=== PATIENT | male | born 2000 | race Two or more races ===

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

== ENCOUNTER 2021-02-20 01:59 | Emergency (ER) | payer SELFPAY ==
[~2021-02-20] VITALS: Ht 170.2 cm; Wt 84.1 kg
--- NOTE | 2021-02-20 05:30 | ED.ADGEN ---
Past Medical History Past Medical History: No Pertinent History Past Surgical History: No Surgical History Smoking Status: Never Smoker Alcohol Use: None Drug Use: None General Adult EDM: Chief Complaint: HEMATEMESIS/VOMITING BLOOD HPI: HPI: Patient is a 20 year old male presenting with a few episodes of hematemesis starting 3 days ago. Patient states initially he had clear emesis that was fol lowed by coffee-ground and then some reddish streaked emesis. Patient states he spicy food but denies any heavy alcohol use. Says he has had intermittent burning epigastric pain. Patient took a laxative 2 days ago for constipation that had lasted 10 days. Patient states he since had a bowel movement. Review of Systems: Review of Systems: All other systems within normal limits except for as noted in the HPI Allergies: Allergies: Allergies Coded Allergies Type Severity Reaction Last Updated Verified No Known Drug Allergies 09/10/16 No Physical Exam: PE: Constitutional: Well developed, well nourished, no acute distress, non-toxic appearance. [] HENT: Normocephalic, atraumatic, bilateral external ears normal, nose normal. [] Eyes: PERRLA, conjunctiva normal, no discharge. [] Neck: No rigidity, supple, no stridor. [] Cardiovascular: Regular rate and rhythm, brisk cap refill [] Lungs & Thorax: Non labored symmetric respirations, no tachypnea or respiratory distress [] Abdomen: Soft, nondistended, no guarding or tenderness palpation. Skin: Warm, dry, no erythema, no rash. [] Back: Unremarkable Extremities: No deformities, range of motion grossly intact, no lower extremity edema [] Neurologic: Alert and oriented X 3, no focal deficits noted. [] Psychologic: Affect normal, judgement normal, mood normal. [] Current Patient Data: Labs: Laboratory Tests Test 02/20/21 05:18 02/20/21 06:33 White Blood Count 14.2 x10^3/uL (4.0-11.0) H Red Blood Count 5.78 x10^6/uL (4.30-5.70) H Hemoglobin 16.6 g/dL (13.0-17.5) Hematocrit 48.5 % (39.0-53.0) Mean Corpuscular Volume 84 fL (79-100) Mean Corpuscular Hemoglobin 29 pg (25-35) Mean Corpuscular Hemoglobin Concent 34 g/dL (31-37) Red Cell Distribution Width 12.6 % (11.5-14.5) Platelet Count 236 x10^3/uL (140-400) Neutrophils (%) (Auto) 77 % (31-73) H Lymphocytes (%) (Auto) 16 % (24-48) L Monocytes (%) (Auto) 7 % (0-9) Eosinophils (%) (Auto) 0 % (0-3) Basophils (%) (Auto) 0 % (0-3) Neutrophils # (Auto) 10.8 x10^3/uL (1.8-7.7) H Lymphocytes # (Auto) 2.3 x10^3/uL (1.0-4.8) Monocytes # (Auto) 1.0 x10^3/uL (0.0-1.1) Eosinophils # (Auto) 0.0 x10^3/uL (0.0-0.7) Basophils # (Auto) 0.0 x10^3/uL (0.0-0.2) Sodium Level 135 mmol/L (136-145) L Potassium Level 3.5 mmol/L (3.5-5.1) Chloride Level 93 mmol/L (98-107) L Carbon Dioxide Level 29 mmol/L (21-32) Anion Gap 13 (6-14) Blood Urea Nitrogen 16 mg/dL (8-26) Creatinine 1.0 mg/dL (0.7-1.3) Estimated GFR (Cockcroft-Gault) 95.3 BUN/Creatinine Ratio 16 (6-20) Glucose Level 116 mg/dL (70-99) H Calcium Level 9.7 mg/dL (8.5-10.1) Phosphorus Level 5.7 mg/dL (2.6-4.7) H Magnesium Level 2.5 mg/dL (1.8-2.4) H Total Bilirubin 2.6 mg/dL (0.2-1.0) H Aspartate Amino Transferase (AST) 19 U/L (15-37) Alanine Aminotransferase (ALT) 23 U/L (16-63) Alkaline Phosphatase 94 U/L (46-116) Total Protein 8.6 g/dL (6.4-8.2) H Albumin 5.3 g/dL (3.4-5.0) H Albumin/Globulin Ratio 1.6 (1.0-1.7) Lipase 55 U/L (73-393) L Urine Collection Type Unknown Urine Color Joie Urine Clarity Clear Urine pH 6.0 (<5.0-8.0) Urine Specific [place] >=1.030 (1.000-1.030) Urine Protein 30 mg/dL (NEG-TRACE) Urine Glucose (UA) Negative mg/dL (NEG) Urine Ketones (Stick) 15 mg/dL (NEG) Urine Blood Moderate (NEG) Urine Nitrite Negative (NEG) Urine Bilirubin Small (NEG) Urine Urobilinogen Dipstick 0.2 mg/dL (0.2 mg/dL) Urine Leukocyte Esterase Negative (NEG) Urine RBC 6-10 /HPF (0-2) Urine WBC 0 /HPF (0-4) Urine Squamous Epithelial Cells Few /LPF Urine Bacteria 0 /HPF (0-FEW) Urine Mucus Mod /LPF Urine Opiates Screen Neg (NEG) Urine Methadone Screen Neg (NEG) Urine Barbiturates Neg (NEG) Urine Phencyclidine Screen Neg (NEG) Urine Amphetamine/Methamphetamine Neg (NEG) Urine Benzodiazepines Screen Pos (NEG) Urine Cocaine Screen Neg (NEG) Urine Cannabinoids Screen Pos (NEG) Urine Ethyl Alcohol Neg (NEG) Laboratory Tests 02/20/21 05:18 Laboratory Tests 02/20/21 05:18 Vital Signs: Vital Signs Date Time Temp Pulse Resp B/P (MAP) Pulse Ox O2 Delivery O2 Flow Rate FiO2 02/20/21 05:15 98.6 80 15 143/77 (99) 97 Room Air 98.6 EKG: EKG: [] Heart Score: C/O Chest Pain: No Risk Factors: Risk Factors: DM, Current or recent (<one month) smoker, HTN, HLP, family history of CAD, obesity. Risk Scores: Score 0 - 3: 2.5% MACE over next 6 weeks - Discharge Home Score 4 - 6: 20.3% MACE over next 6 weeks - Admit for Clinical Observation Score 7 - 10: 72.7% MACE over next 6 weeks - Early Invasive Strategies Radiology/Procedures: Radiology/Procedures: [][facility] [address] [place] [address] IMAGING REPORT Signed PATIENT: KRYSTIN LYMAN ACCOUNT: [id number] : 2000 LOCATION: ER AGE: 20 SEX: M EXAM STATUS: REG ER ORD. PHYSICIAN: ARNIE ROCK DO REASON: nausea, vomiting, constipation PROCEDURE: ACUTE ABDOMEN SERIES Acute Abdominal Series: Technique: PA view of the chest and supine and upright views of the abdomen were obtained. History: Pain. Comparison: None. Findings: The cardiomediastinal silhouette is normal. The pulmonary vessels appear normal. The lungs are clear. There is air scattered throughout the colon. There is a paucity of small bowel gas. There is no free air. Impression: Radiographically normal acute abdominal series. Electronically signed by: Frank Fowler III, MD (02/20/2021 6:33 AM) [facility] DICTATED and SIGNED BY: FRANK FOWLER III, MD DATE: 02/20/21 [id number] 0 Course & Med Decision Making: Course & Med Decision Making Care transition at shift change, pending labs Patient is a 20-year-old male who present to ER due to epigastric abdominal pain, burning in nature, vomiting some trace of blood. Patient felt much better now, abdominal examination completely benign, no tenderness to palpation, no McBurney sign, no rebound tenderness, no guarding. Patient will be discharged home with prescription for antacid medication. Dragon Disclaimer: Dragon Disclaimer: This electronic medical record was generated, in whole or in part, using a voice recognition dictation system. Departure Departure Impression: Primary Impression: Gastritis Disposition: 01 HOME / SELF CARE / HOMELESS Condition: IMPROVED Referrals: NO PCP (PCP) Please follow up with [facility] this week. [address], [address] [place] [address] Phone number: [phone] Patient Instructions: Gastritis, Adult Additional Instructions: Thank you for visiting our Emergency Department. We appreciate you trusting us with your care. If any additional problems come up don't hesitate to return to visit us. Please follow up with your primary care provider so they can plan additional care if needed and know about the problem that you had. If symptoms worsen come back to the Emergency Department. Any concerning symptoms that start such as chest pain, shortness of air, weakness or numbness on one side of the body, running high fevers or any other concerning symptoms return to the ER. Scripts Omeprazole Magnesium (PRILOSEC OTC) 20 Mg Tablet.dr 1 TAB PO DAILY for 30 Days, #30 TAB 0 Refills Prov: ARNIE ROCK DO 02/20/21 SAÚL TRAN MD Feb 20, 2021 05:30 ARNIE ROCK DO Feb 20, 2021 07:14
[2021-02-20 06:08] LABS: BASO % 0 % (0-3); EOS % 0 % (0-3); HEMATOCRIT 48.5 % (39.0-53.0); HEMOGLOBIN 16.6 g/dL (13.0-17.5); LYMPH # 2.3 x10^3/uL (1.0-4.8); LYMPH % 16 % (24-48); MEAN CORPUSCULAR HEMOGLOBIN 29 pg (25-35); MEAN CORPUSCULAR HGB CONC 34 g/dL (31-37); MEAN CORPUSCULAR VOLUME 84 fL (79-100); MONO % 7 % (0-9); NEUT # 10.8 x10^3/uL (1.8-7.7); NEUT % 77 % (31-73); PLATELET COUNT 236 x10^3/uL (140-400); RED BLOOD COUNT 5.78 x10^6/uL (4.30-5.70); RED CELL DISTRIBUTION WIDTH 12.6 % (11.5-14.5); WHITE BLOOD COUNT 14.2 x10^3/uL (4.0-11.0)
[2021-02-20 06:13] LABS: CALCIUM 9.7 mg/dL (8.5-10.1); GFR 95.3; POTASSIUM 3.5 mmol/L (3.5-5.1)
[2021-02-20 06:19] LABS: ALBUMIN 5.3 g/dL (3.4-5.0); ALBUMIN/GLOBULIN RATIO 1.6 (1.0-1.7); MAGNESIUM 2.5 mg/dL (1.8-2.4); PHOSPHORUS 5.7 mg/dL (2.6-4.7); TOTAL BILIRUBIN 2.6 mg/dL (0.2-1.0); TOTAL PROTEIN 8.6 g/dL (6.4-8.2)
--- NOTE | 2021-02-20 06:36 | RAD ---
Acute Abdominal Series: Technique: PA view of the chest and supine and upright views of the abdomen were obtained. History: Pain. Comparison: None. Findings: The cardiomediastinal silhouette is normal. The pulmonary vessels appear normal. The lungs are clear. There is air scattered throughout the colon. There is a paucity of small bowel gas. There is no free air. Impression: Radiographically normal acute abdominal series. Electronically signed by: Juve Sweeney III, MD (02/20/2021 6:33 AM) [facility]
[2021-02-20 06:46] LABS: BILIRUBIN,URINE SMALL (NEG); CLARITY,URINE CLEAR; COLOR,URINE AMBER; NITRITE,URINE NEGATIVE (NEG); PROTEIN,URINE 30 mg/dL (NEG-TRACE); UROBILINOGEN,URINE 0.2 mg/dL (0.2 mg/dL)
[2021-02-20 06:53] LABS: AMPHETAMINE/METHAMPHETAMINE NEG (NEG); BARBITURATES NEG (NEG); BENZODIAZEPINES POS (NEG); CANNABINOIDS POS (NEG); COCAINE NEG (NEG); METHADONE NEG (NEG); OPIATES NEG (NEG); PHENCYCLIDINE NEG (NEG)
[2021-02-20 06:58] LABS: BACTERIA,URINE 0 /HPF (0-FEW); WBC,URINE 0 /HPF (0-4)
[2021-02-20] MEDS ORDERED: OMEP20TA63 PO (07:14)
[2021-02-20 07:18] VITALS: BP 147/78
== END 2021-02-20 07:18 | disposition home or self-care (01) ==
LOC: ER 01:59
DX: K29.70 Gastritis, unspecified, without bleeding (principal)
CPT/HCPCS: 36415; 74022; 80053; 80307; 81001; 83690; 83735; 84100; 85025; 99284